=== PATIENT | male | born 1955 | race Caucasian/White ===

== ENCOUNTER 2025-03-13 08:21 | Day surgery (SDC) | payer MEDICARE, SELFPAY ==
--- NOTE | 2025-03-11 07:22 | EXP.HP ---
History of Present Illness *Admission Date: 03/13/25 *History of present illness: Mr. Maurer is a 69-year-old gentleman who is here for screening/surveillance colonoscopy. The patient's father had colon cancer in his mid 60s. He had normal colonoscopies in January 2006 and in April 2011. His colonoscopy and April 2016 revealed 2 polyps (small tubular adenomas x 2) which were removed. His last colonoscopy in July 2019 revealed 2 polyps (tubular adenomas x 2) which were removed. The examination is deemed medically necessary for screening/surveillance colonoscopy. The patient has been seen, interviewed and examined prior to the procedure by both myself and the anesthesia provider. [facility] Disclaimer: The information contained in this section may have been updated after the patient was seen, as this information can be updated by other users. Medical History Encounter for colonoscopy due to history of colonic polyp Hyperlipidemia Hypertension Surgical History History of arthroscopic knee surgery Family History Father Colon cancer Heart disease Mother Heart disease Brother Heart disease Social History (Updated 03/13/25 @ 09:17 by Lana Mendiola CRNA) Smoking Status: Never smoker alcohol intake: never substance use type: unknown current occupational status: retired Travel in the last 8 weeks?: Outside the [facility] caffeine: Yes Have you lived/traveled outside [place] in past 30 days?: No Contact w/someone who lives/traveled outside [place] past 30 days?: No Exposure to someone with infectious disease in past 14 days?: No Do you have a fever (greater than 100.4 F or 38 C)?: No Have you tested positive for COVID-19?: No Exposed to someone with COVID-19 in past 14 days?: No Do you have a sore throat?: No Do you have a cough?: No Do you have any weakness?: No Do you have any diarrhea?: No Are you experiencing any unusual bleeding?: No Do you have any muscle aches/pain?: No Do you have any abdominal pain?: No Are you experiencing loss of taste or smell?: No Review of Systems Review of Systems Review of systems (narrative): Negative *Cardiovascular Comments: Negative *Gastrointestinal Comments: Negative *Genitourinary Comments: Negative *Musculoskeletal Comments: Negative *Neurologic Comments: Negative Meds Home Medications and Allergies Home Medications ?Medication ?Instructions ?Recorded ?Confirmed ?Type sodium,potassium,mag sulfates 17.5 See Rx Instructions PO .COMPLEX 02/27/25 03/13/25 Rx gram-3.13 gram-1.6 gram oral soln #354 mL (Suprep Bowel Prep Kit) aspirin 81 mg tablet 81 mg PO DAILY 03/11/25 03/13/25 History multivitamin 1 tab PO DAILY 03/11/25 03/13/25 History niacin 50 mg tablet 50 mg PO DAILY 03/11/25 03/13/25 History omega-3 fatty acids 1,000 mg PO DAILY 03/11/25 03/13/25 History rosuvastatin 20 mg tablet 20 mg PO DAILY 03/11/25 03/13/25 History valsartan 40 mg tablet 40 mg PO DAILY 03/11/25 03/13/25 History New Prescriptions to Start Prescriptions: Allergies Allergy/AdvReac Type Severity Reaction Status Date / Time No Known Allergies Allergy Verified 03/13/25 08:59 Exam *Routine HEENT Exam Head: Present normocephalic Eye: Present EOMI and PERRL ENT: Present mucous membranes moist *Routine Neck Exam Neck: Present supple *Routine Respiratory Exam Respiratory: Present CTA bilaterally *Routine Cardiovascular Exam Cardiovascular: Present RRR *Routine Abdominal Exam Abdominal: Present soft and normoactive bowel sounds; Absent tenderness *Routine Rectal Exam Rectal:: deferred *Routine Genitalia Exam Genitalia:: deferred *Routine Extremities Exam Extremities: Absent cyanosis, clubbing or edema *Routine Skin Exam Skin: Present warm; Absent rash *Routine Neurological Exam Neurological: Present alert and oriented X3 Assessment and Plan *Assessment and plan (1) Personal history of adenomatous and serrated colon polyps: Status: Acute Category: Medical Code(s): Z86.0101 - Personal history of adenomatous and serrated colon polyps (2) Family history of colon cancer in father: Status: Acute Category: Medical Code(s): Z80.0 - Family history of malignant neoplasm of digestive organs Plan A/P: 1. Personal history of adenomatous colon polyps and family history of colon cancer (father) is the preprocedural diagnosis. The patient will be anesthetized/sedated using MAC sedation. The patient has been seen and examined. Cardiac and lung assessment prior to the examination is stable. Proceed with planned screening/surveillance colonoscopy.
[2025-03-11 13:04] VITALS: BMI 25.0
--- NOTE | 2025-03-13 06:43 | P.PCN_ITS ---
[facility] Procedure Note Date: 03/13/25 Time: 10:27 Procedure Note:: Colonoscopy Procedure Report: Colonoscopy Endoscopist: Jed Lantigua II, MD Referring physician: Manny Garcia M.D. Date of Procedure: March 13, 2025 Equipment: Olympus [id number] adult colonoscope Sedation: MAC sedation Indication: Mr. Maurer is a 69-year-old gentleman who is here for screening/surveillance colonoscopy. The patient's father had colon cancer in his mid 60s. He had normal colonoscopies in January 2006 and in April 2011. His colonoscopy in April 2016 revealed 2 polyps (small tubular adenomas x 2) which were removed. His last colonoscopy in July 2019 revealed 2 polyps (tubular adenomas x 2) which were removed. The patient reports no abdominal pain, weight loss, change in his bowel habits or rectal bleeding. The examination is deemed medically necessary for screening/surveillance colonoscopy. Procedure: Prior to the procedure, a history and physical exam was performed, and patient's medications and allergies were reviewed. The risks, benefits and alternatives of the sedation and procedure were discussed with the patient. All questions were answered and informed consent was obtained. The patient was brought to the procedure room. Patient identification and proposed procedure were verified by the physician and the nurse. The patient was placed in a left lateral decubitus position and the scope was passed under direct vision. Throughout the procedure, the patient's blood pressure, pulse, and oxygen saturations were monitored continuously. The colonoscopy was accomplished without difficulty. The patient tolerated the procedure well. Findings: On digital rectal examination there was normal rectal tone. There were no external hemorrhoids. The prostate was 2-3+, smooth, soft, symmetric without nodules. The colonoscope was introduced through the anal canal to the rectum and advanced to the cecum. The ileocecal valve and appendiceal orifice were identified. The scope was advanced a short distance into the ileum which appeared grossly normal. The scope was then withdrawn into the colon. The cecum, ascending, transverse and descending colon and mucosa were grossly normal. There were mildly scattered diverticuli through the sigmoid colon. The rectum itself was normal. Upon retroflexion within the rectum there were grade 1-2 internal hemorrhoids. The preparation was excellent throughout with [place] Preparation Score of 9. The cecal time was 12 minutes. Impression: 1. Mild sigmoid diverticulosis 2. Grade 1-2 internal hemorrhoids Plan: I would encourage psyllium fiber supplementation. We will discuss next surveillance.
[2025-03-13 09:02] VITALS: BP 165/68; PULSE 64; RESP 18; TEMP 36.3; O2SAT 97
[2025-03-13] MEDS: LACTATED RINGERS 1000ML 1,000 ML 50 ML IV (09:10)
--- NOTE | 2025-03-13 09:16 | EXP.ANES.CKL ---
[facility] Disclaimer: The information contained in this section may have been updated after the patient was seen, as this information can be updated by other users. Medical History Encounter for colonoscopy due to history of colonic polyp Hyperlipidemia Hypertension Surgical History History of arthroscopic knee surgery Family History Father Colon cancer Heart disease Mother Heart disease Brother Heart disease Social History Smoking Status: Never smoker alcohol intake: never substance use type: unknown current occupational status: retired Travel in the last 8 weeks?: Outside the [facility] caffeine: Yes [facility] Anesthesia Checklist Patient Identification Patient Identification: Arm Band and Verbal (Name & ) Structural Data Admitted From: Home Planned Operative Procedure/s: colonscopy Consent for Planned Operative Procedure(s) Verified: Yes Verified Documents: Surgical Consent and History and Physical NPO Status Verified Time NPO: 00:00 Additional verifications Anesthesia Reactions: No Previous Colonoscopy: Yes Airway Assessment Mallampati Score:: Class II Dentition: Good Dentition Neurological Assessment Level of Consciousness: Awake, Alert and Appropriate Hx Seizures: No Numbness or tingling in extremities: No Anesthesia Plan Anesthesia Risk discussed: Yes Anesthesia Plan: Verified ASA Class: II Anesthesia Type: MAC
[2025-03-13 10:30] VITALS: BP 96/59; PULSE 62; RESP 16; TEMP 36.3; O2SAT 95
[2025-03-13 10:40] VITALS: BP 116/70; PULSE 60; RESP 18; TEMP 36.3; O2SAT 96
[2025-03-13 10:50] VITALS: BP 125/73; PULSE 58; RESP 18; TEMP 36.3; O2SAT 96
[2025-03-13 11:00] VITALS: BP 125/73; PULSE 58; RESP 18; TEMP 36.3; O2SAT 96
== END 2025-03-13 11:00 | disposition home or self-care (01) ==
PROVIDERS: PCP Internal Medicine; Visit Provider Internal Medicine Gastroenterology
PROC: 0DJD8ZZ Inspection of Lower Intestinal Tract, Via Natural or Artificial Opening Endoscopic (ICD-10-PCS; CPT 45378; principal; 2025-03-13 10:00)
DX: Z12.11 Encounter for screening for malignant neoplasm of colon (principal); K57.30 Diverticulosis of large intestine without perforation or abscess without bleeding; K64.0 First degree hemorrhoids; K64.1 Second degree hemorrhoids; I10 Essential (primary) hypertension; E78.5 Hyperlipidemia, unspecified; Z86.0101 Personal history of adenomatous and serrated colon polyps; Z80.0 Family history of malignant neoplasm of digestive organs; Z79.82 Long term (current) use of aspirin
CPT/HCPCS: 45378; J2003; J2704; J7120